=== PATIENT | male | born 1955 | race Caucasian/White ===

== ENCOUNTER 2017-01-22 23:23 | Emergency (ER) | payer OTHER ==
[~2017-01-22] VITALS: Ht 182.8 cm; Wt 69.8 kg
--- NOTE | ~2017-01-22 | EKG ---
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
[2017-01-23] MEDS ORDERED: ZANTAC 150MG T150 MG PO (00:03)
[2017-01-23] MEDS ORDERED: CARAFATE 1 GM TA1 G1 PO (00:03)
[2017-01-23 00:21] VITALS: BP 132/90
== END 2017-01-23 00:24 | disposition home or self-care (01) ==
LOC: ER 23:23
DX: K21.9 Gastro-esophageal reflux disease without esophagitis (principal); F17.210 Nicotine dependence, cigarettes, uncomplicated